=== PATIENT | male | born 1970 | race Caucasian/White ===

== ENCOUNTER 2023-09-03 01:40 | Observation (INO) | payer BC, SELFPAY ==
[2023-09-03] MEDS ORDERED: ALBUTEROL 2.5 MG/3 ML NEB SOL ONE (02:48)
[2023-09-03] MEDS ORDERED: METHYLPREDNISOLONE 125 MG INJ ONE (02:49)
[2023-09-03] MEDS ORDERED: IPRATROPIUM BROM 0.5MG/2.5ML ONE (02:49)
[2023-09-03] MEDS ORDERED: guaiFENesin 100 MG/5 ML UCUP ONE (02:49)
[2023-09-03] MEDS ORDERED: THIAMINE 200 MG/2 ML INJ ONE (02:49)
[2023-09-03] MEDS ORDERED: MULTIVITAMINS 10 ML VIAL (INJ) IV ONE (02:50)
[2023-09-03] MEDS ORDERED: NA CHLORIDE 0.9% 1,000 ML ONE (02:50)
[2023-09-03] MEDS ORDERED: FOLIC ACID 5 MG/ML VIAL ONE (02:51)
[2023-09-03 02:55] LABS: Absolute Basophils 0.1 K/uL (0-0.5); Absolute Eosinophils 0.1 K/uL (0-0.5); Absolute Monocytes 0.6 K/uL (0.1-1.3); Absolute Neutrophil 7.2 K/uL (1.8-8.0); Basophils % 0.7 % (0-1.3); Eosinophils % 1.6 % (0-4.4); Hematocrit 46.3 % (39.6-49.0); Hemoglobin 15.3 g/dL (13.6-17.9); Lymphocytes % 11.1 % (15.3-44.8); MCH 31.4 pg (27.0-35.0); MCHC 33.1 g/dL (32.0-36.0); MCV 94.7 fL (80-100); Neutrophils % 79.6 % (41.7-73.7); Platelets 239 thou/uL (152-406); RBC Red Blood Cell Count 4.89 M/uL (4.33-5.43); Red Cell Distribution Width 13.4 % (12.1-15.2)
[2023-09-03 03:06] LABS: PT Prothrombin Time 10.3 SECONDS (9.5-12.5); PTT, Activated Partial Thromb 31.2 SECONDS (24.3-36.9); Protime INR 0.93
[2023-09-03 03:20] LABS: ALT/SGPT 37 U/L (16-61); AST/SGOT 29 U/L (15-37); Albumin 3.5 g/dL (3.4-5.0); Albumin/Globulin Ratio 0.9 (1.1-1.8); Alkaline Phosphatase 76 U/L (45-117); Anion Gap 10.7 mEq/L (5.0-15.0); BUN Blood Urea Nitrogen 15 mg/dL (7-18); Bicarbonate 26 mEq/L (21-32); Bilirubin Total 0.2 mg/dL (0.2-1.0); Creatine Phosphokinase 480 U/L (39-308); Globulin 3.8 g/dL (2.3-3.5); Glomerular Filtration Rate 82 ml/min (=/>90); Glucose Level 93 mg/dL (74-106); Lipase 37 U/L (13-75); Magnesium 2.3 mg/dL (1.6-2.4); NT PRO-BNP 40 pg/mL (<125); Potassium 3.7 mEq/L (3.5-5.1); Protein, Total 7.3 g/dL (6.4-8.2); Sodium Level 140 mEq/L (136-145); Troponin High Sensitivity 5.9 pg/mL (<58.9)
[2023-09-03 03:25] LABS: Bilirubin Direct < 0.1 mg/dL (0-0.2); Bilirubin Indirect, Calculated ND mg/dL (0.2-0.8)
[2023-09-03] MEDS ORDERED: ACETAMINOPHEN 500 MG TAB PO PRN (06:32)
[2023-09-03] MEDS ORDERED: ONDANSETRON 4 MG/2 ML VIAL IV PRN (06:32)
[2023-09-03] MEDS ORDERED: IBUPROFEN 400 MG TAB PO PRN (06:32)
--- NOTE | 2023-09-03 06:32 | EDPHYS ---
Physician Documentation [facility] Name: Chet Murdock Age: 53 yrs Sex: Male : 1970 Arrival Date: 09/03/2023 Time: 01:40 Bed 15 Private MD: ED Physician Homero Holman HPI: 09/02 01:46 This 53 yrs old Male presents to ER via Unassigned with complaints of Dyspnea sp4 . 06:25 53-year-old male presents with wheezing and alcohol intoxication. sp4 Historical: - Allergies: 01:44 Codeine; ha1 01:44 PENICILLINS; ha1 - PMHx: 01:44 COPD; Hypertensive disorder; ha1 - Immunization history:: Adult Immunizations not up to date. - Infectious Disease History:: Denies. - Social history:: Smoking status: Patient reports the use of cigarette tobacco products, smokes one pack cigarettes per day. - Family history:: not pertinent. ROS: 06:25 Constitutional: Negative for fever, chills, and weight loss, positive for dyspnea, sp4 positive for wheezing, positive for alcohol intoxication 06:25 All other systems are negative, Exam: 06:25 Constitutional: This is a well developed, well nourished patient who is awake, alert, sp4 and in no acute distress. Head/Face: Normocephalic, atraumatic. Eyes: Pupils equal round and reactive to light, extra-ocular motions intact. Lids and lashes normal. Conjunctiva and sclera are not injected. Cornea within normal limits. Periorbital areas with no swelling, redness, or edema. ENT: Nares patent. No nasal discharge, no septal abnormalities noted. Tympanic membranes are normal and external auditory canals are clear. Oropharynx with no redness, swelling, or masses, exudates, or evidence of obstruction, uvula midline. Mucous membranes moist. Neck: Trachea midline, no thyromegaly or masses palpated, and no cervical lymphadenopathy. Supple, full range of motion without nuchal rigidity, or vertebral point tenderness. Chest/axilla: Normal chest wall appearance and motion. Nontender with no deformity. No lesions are appreciated. Cardiovascular: Regular rate and rhythm with a normal S1 and S2. No gallops, murmurs, or rubs. Normal PMI, no JVD. No pulse deficits. Respiratory: Lungs have equal breath sounds bilaterally, clear to auscultation and percussion. No rales, rhonchi or wheezes noted. No increased work of breathing, no retractions or nasal flaring. Abdomen/GI: Soft, with normal bowel sounds. No distension or tympany. No guarding or rebound. No evidence of tenderness throughout. Back: No spinal tenderness. No costovertebral tenderness. Skin: Warm, dry with normal turgor. Normal color with no rashes, no lesions, and no evidence of cellulitis. MS/ Extremity: Pulses equal, no cyanosis. Neurovascular intact. Full, normal range of motion. Neuro: Awake and alert, GCS 15, oriented to person, place, time, and situation. Cranial nerves II-XII grossly intact. Motor strength 5/5 in all extremities. Sensory grossly intact. Psych: Awake, alert, with orientation to person, place and time. Behavior, mood, and affect are within normal limits 06:25 ECG was reviewed by the Attending Physician. EKG at 0 216 sp4 Vital Signs: 01:44 BP 136 / 91; Pulse 82; Resp 19 S; Temp 98.2; Pulse Ox 100% on 4 lpm NC; Weight 90.72 kg;ha1 02:10 BP 142 / 102; Pulse 82; Resp 20 S; Pulse Ox 100% on 3 lpm NC; ha1 03:00 BP 125 / 81; Pulse 88; Resp 20 S; Pulse Ox 100% on Nebulizer Mask; ha1 04:01 BP 131 / 79; Pulse 89; Resp 20 S; Pulse Ox 97% on R/A; ha1 05:02 BP 139 / 81; Pulse 98; Resp 18 S; Pulse Ox 94% on R/A; ha1 06:00 BP 123 / 65; Pulse 92; Resp 17; Pulse Ox 91% ; vc1 [place] Coma Score: 06:25 Eye Response: spontaneous(4). Motor Response: obeys commands(6). Verbal Response: sp4 oriented(5). Total: 15. MDM: 01:56 Patient medically screened. sp4 06:29 Differential Diagnosis altered mental status, sepsis, flu. Data reviewed: vital signs, sp4 nurses notes, EMS record, lab test result(s), EKG, radiologic studies, plain films. ED course: EXAM: XR Chest, 1 View CLINICAL HISTORY: The patient is 53 years old and is Male; CHEST PAIN TECHNIQUE: Frontal view of the chest. COMPARISON: No relevant prior studies available. FINDINGS: Lungs: Unremarkable. No consolidation. Pleural space: Unremarkable. No pneumothorax. Heart: Unremarkable. Mediastinum: Unremarkable. Normal mediastinal contour. Bones/joints: No acute findings. IMPRESSION: No acute findings in the chest.. 09/02 01:54 Order name: Alcohol Level; Complete Time: 06:24 sp4 09/02 01:55 Order name: BMP; Complete Time: 06:24 sp4 09/02 01:55 Order name: Blood Culture Adult (2) 09/02 01:55 Order name: CBC with Diff; Complete Time: 06:24 4 09/02 01:55 Order name: CPK; Complete Time: 06:24 sp4 09/02 01:55 Order name: Hepatic Function; Complete Time: 06:24 sp4 09/02 01:55 Order name: Lipase; Complete Time: 06:24 sp4 09/02 01:55 Order name: Magnesium; Complete Time: 06:24 sp4 09/02 01:55 Order name: NT PRO-BNP; Complete Time: 06:24 sp4 09/02 01:55 Order name: PT-INR; Complete Time: 06:24 4 09/02 01:55 Order name: Ptt, Activated; Complete Time: 06:24 4 09/02 01:55 Order name: Troponin HS; Complete Time: 06:24 sp4 09/02 06:36 Order name: Urinalysis w/ reflexes EDMS 09/02 06:36 Order name: CBC with Automated Diff EDMS 09/02 06:36 Order name: CBC with Automated Diff EDMS 09/02 06:36 Order name: Comprehensive Metabolic Panel EDMS 09/02 06:36 Order name: Comprehensive Metabolic Panel EDMS 09/02 06:36 Order name: Magnesium EDMS 09/02 06:36 Order name: Magnesium EDMS 09/02 01:55 Order name: XRAY CXR (1 view) 09/02 01:55 Order name: EKG; Complete Time: 01:56 09/02 01:55 Order name: Cardiac monitoring; Complete Time: 02:23 4 09/02 01:55 Order name: EKG - Nurse/Tech; Complete Time: 02:23 4 09/02 01:55 Order name: IV Saline Lock; Complete Time: 03:52 sp4 09/02 01:55 Order name: Labs collected and sent; Complete Time: sp4 09/02 01:55 Order name: O2 Per Protocol; Complete Time: sp4 09/02 01:55 Order name: O2 Sat Monitoring; Complete Time: EC:25 Rate is 82 beats/min. Rhythm is regular, Normal Sinus Rhythm. QRS [place] is Normal. SC sp4 interval is normal. QRS interval is normal. QT interval is normal. No Q waves. T waves are Normal. No ST changes noted. Clinical impression: No evidence of ischemia. Interpreted by me. Reviewed by me. Administered Medications: 02:30 Drug: MethylPrednisoLONE IVP 125 mg IVP once Route: IVP; Site: right antecubital; ha1 04:00 Follow up: Response: No adverse reaction; Marked relief of symptoms ha1 02:30 Drug: Dextromethorphan-Guaifenesin PO Liquid 10 mg-100 mg/5 mL 10 ml PO once Route: PO; ha1 03:00 Follow up: Response: No adverse reaction; Marked relief of symptoms ha1 02:30 Drug: Ondansetron IVP 4 mg IVP once; over 2 minutes Route: IVP; Site: right antecubital;ha1 03:00 Follow up: Response: No adverse reaction; Marked relief of symptoms ha1 02:31 Drug: Albuterol Inhalation 2.5 mg Inhalation every 20 minutes x3 Route: Inhalation; ha1 02:31 Drug: Ipratropium Inhalation Aerosol 0.5 mg Inhalation once; Every 20 min for a total ha1 of 3 treatments x3 Route: Inhalation; 02:40 Drug: Banana Bag - (Multivitamin IV 1 amp, NS 0.9% IV 1000 ml, Thiamine IV 100 mg, ha1 foLIC Acid IVPB 1 mg) IV at calculated rate once Route: IV; Rate: calculated rate; Site: right antecubital; 02:45 Drug: Albuterol Inhalation 2.5 mg Inhalation every 20 minutes x3 Route: Inhalation; ha1 02:45 Drug: Ipratropium Inhalation Aerosol 0.5 mg Inhalation once; Every 20 min for a total ha1 of 3 treatments x3 Route: Inhalation; 03:06 Drug: Albuterol Inhalation 2.5 mg Inhalation every 20 minutes x3 Route: Inhalation; ha1 04:00 Follow up: Response: No adverse reaction; Marked relief of symptoms ha1 03:06 Drug: Ipratropium Inhalation Aerosol 0.5 mg Inhalation once; Every 20 min for a total ha1 of 3 treatments x3 Route: Inhalation; 04:00 Follow up: Response: No adverse reaction; Marked relief of symptoms ha1 Disposition Summary: 09/03/23 06:31 Hospitalization Ordered Notes: Hospitalization Status: Inpatient Admission sp4 Provider: Ravi Bacon sp4 [facility] sp4 Condition: Stable sp4 Problem: new sp4 Symptoms: have improved sp4 Bed/Room Type: Standard sp4 Room Assignment: 421(09/03/23 06:42) eb Diagnosis - COPD/ Chronic obstructive pulmonary disease with (acute) exacerbation sp4 - Alcohol abuse with intoxication, uncomplicated sp4 Forms: - Medication Reconciliation Form sp4 - SBAR form sp4 - Leadership Thank You Letter sp4 Signatures: Dispatcher [employer] EDMaria Luisa Bonilla Heidy, RN RN ha1 Homero Holman MD MD sp4 Corrections: (The following items were deleted from the chart) 01:56 01:56 BASIC METABOLIC PANEL+C.LAB.BRZ ordered. EDMS EDMS 01:56 01:56 BLOOD CULTURE*+BA.LAB.BRZ ordered. EDMS EDMS 01:56 01:56 CBC+H.LAB.BRZ ordered. EDMS EDMS 01:56 01:56 CREATINE PHOSPHOKINASE+C.LAB.BRZ ordered. EDMS EDMS 01:56 01:56 HEPATIC FUNCTION+C.LAB.BRZ ordered. EDMS EDMS 01:56 01:56 LIPASE+C.LAB.BRZ ordered. EDMS EDMS 01:56 01:56 MAGNESIUM+C.LAB.BRZ ordered. EDMS EDMS 01:56 01:56 PROBNP+C.LAB.BRZ ordered. EDMS EDMS 01:56 01:56 PROTIME (+INR)+COAG.LAB.BRZ ordered. EDMS EDMS 01:56 01:56 PTT, ACTIVATED+COAG.LAB.BRZ ordered. EDMS EDMS 01:56 01:56 Troponin High Sensitivity+C.LAB.BRZ ordered. EDMS EDMS 06:42 06:31 sp4 eb
--- NOTE | 2023-09-03 06:32 | ER ---
Nurse's Notes [facility] Name: Chet Murdock Age: 53 yrs Sex: Male : 1970 Arrival Date: 09/03/2023 Time: 01:40 Bed 15 Private MD: Diagnosis: COPD/ Chronic obstructive pulmonary disease with (acute) exacerbation;Alcohol abuse with intoxication, uncomplicated Presentation: 09/02 01:44 Chief complaint: EMS states: 53 YEAR OLD MALE REPORTS SOB HISTORY OF COPD. BREATHING ha1 TREATMENT GIVEN. SYMPTOMS IMPROVED. :44 Coronavirus screen: Vaccine status: Patient reports being unvaccinated. Ebola Screen: ha1 No symptoms or risks identified at this time. Initial Sepsis Screen: Does the patient meet any 2 criteria? No. Patient's initial sepsis screen is negative. Does the patient have a suspected source of infection? No. Patient's initial sepsis screen is negative. Risk Assessment: Do you want to hurt yourself or someone else? Patient reports no desire to harm self or others. Onset of symptoms was September 03, 2023. :44 Method Of Arrival: EMS: [facility] ha1 :44 Acuity: KAZ 3 ha1 Triage Assessment: : General: Appears uncomfortable, Behavior is cooperative, anxious. Pain: Denies pain. ha1 Neuro: Level of Consciousness is awake, alert, obeys commands, Oriented to person, place, time, situation. Cardiovascular: Heart tones S1 S2 present Capillary refill < 3 seconds Patient's skin is warm and dry. Respiratory: Respiratory: Reports shortness of breath at rest Airway is patent Respiratory effort is even, Respiratory pattern is tachypnea. GI: No signs and/or symptoms were reported involving the gastrointestinal system. Abdomen is round non-distended. Derm: Skin is pink, warm \T\ dry. Historical: - Allergies: : Codeine; ha1 :44 PENICILLINS; ha1 - PMHx: :44 COPD; Hypertensive disorder; ha1 - Immunization history:: Adult Immunizations not up to date. - Infectious Disease History:: Denies. - Social history:: Smoking status: Patient reports the use of cigarette tobacco products, smokes one pack cigarettes per day. - Family history:: not pertinent. Screenin:03 [facility] ED Fall Risk Assessment (Adult) History of falling in the last 3 months, ha1 including since admission No falls in past 3 months (0 pts) Confusion or Disorientation No (0 pts) Intoxicated or Sedated No (0 pts) Impaired Gait No (0 pts) Mobility Assist Device Used Yes (1 pt) Altered Elimination No (0 pt) Score/Fall Risk Level 0 - 2 = Low Risk Oriented to surroundings, Maintained a safe environment, Educated pt \T\ family on fall prevention, incl call for assistance when getting out of bed, Hourly rounding (assess needs \T\ fall precautionary measures) done. Abuse screen: Denies threats or abuse. Denies injuries from another. Nutritional screening: No deficits noted. Tuberculosis screening: No symptoms or risk factors identified. Assessment: 01:44 Reassessment: SEE TRIAGE ASSESSMENT. ha1 03:00 Reassessment: Patient and/or family updated on plan of care and expected duration. Pain ha1 level reassessed. Patient is alert, oriented x 3, equal unlabored respirations, skin warm/dry/pink. Patient states feeling better. Patient states symptoms have improved. 04:00 Reassessment: Patient and/or family updated on plan of care and expected duration. Pain ha1 level reassessed. Patient is alert, oriented x 3, equal unlabored respirations, skin warm/dry/pink. Patient denies pain at this time. Patient states feeling better. Patient states symptoms have improved. 05:01 Reassessment: Patient and/or family updated on plan of care and expected duration. Pain ha1 level reassessed. Patient is alert, oriented x 3, equal unlabored respirations, skin warm/dry/pink. Patient denies pain at this time. Patient states feeling better. Patient states symptoms have improved. 06:07 Reassessment: No changes from previously documented assessment. Patient and/or family vc1 updated on plan of care and expected duration. Pain level reassessed. Patient is alert, oriented x 3, equal unlabored respirations, skin warm/dry/pink. Vital Signs: 01:44 BP 136 / 91; Pulse 82; Resp 19 S; Temp 98.2; Pulse Ox 100% on 4 lpm NC; Weight 90.72 kg;ha1 02:10 BP 142 / 102; Pulse 82; Resp 20 S; Pulse Ox 100% on 3 lpm NC; ha1 03:00 BP 125 / 81; Pulse 88; Resp 20 S; Pulse Ox 100% on Nebulizer Mask; ha1 04:01 BP 131 / 79; Pulse 89; Resp 20 S; Pulse Ox 97% on R/A; ha1 05:02 BP 139 / 81; Pulse 98; Resp 18 S; Pulse Ox 94% on R/A; ha1 06:00 BP 123 / 65; Pulse 92; Resp 17; Pulse Ox 91% ; vc1 [place] Coma Score: 06:25 Eye Response: spontaneous(4). Motor Response: obeys commands(6). Verbal Response: sp4 oriented(5). Total: 15. ED Course: 01:44 Patient arrived in ED. rv1 01:44 Patient has correct armband on for positive identification. Placed in gown. Bed in low ha1 position. Call light in reach. Side rails up X 1. 01:44 Arm band placed on right wrist. ha1 01:45 Homero Holman MD is Attending Physician. sp4 01:52 EKG done, by ED staff, reviewed by Homero Holman MD. ha1 01:58 Kimberlyn Rogers, RN is Primary Nurse. ha1 02:15 Missed attempt(s): 20 gauge in left antecubital area. ha1 02:30 Inserted saline lock: 20 gauge in right antecubital area, using aseptic technique. ha1 Blood collected. 02:30 First set of blood cultures drawn. ha1 02:45 Second set of blood cultures drawn by me. ha1 03:00 XRAY CXR (1 view) In Process Unspecified. EDMS 03:08 BMP Sent. ha1 03:08 Blood Culture Adult (2) Sent. ha1 03:08 CPK Sent. ha1 03:08 Hepatic Function Sent. ha1 03:08 Lipase Sent. ha1 03:08 Magnesium Sent. ha1 03:08 NT PRO-BNP Sent. ha1 03:08 Troponin HS Sent. ha1 03:56 Triage completed. ha1 06:30 Ravi Bacon MD is Hospitalizing Provider. sp4 Administered Medications: 02:30 Drug: MethylPrednisoLONE IVP 125 mg IVP once Route: IVP; Site: right antecubital; ha1 04:00 Follow up: Response: No adverse reaction; Marked relief of symptoms ha1 02:30 Drug: Dextromethorphan-Guaifenesin PO Liquid 10 mg-100 mg/5 mL 10 ml PO once Route: PO; ha1 03:00 Follow up: Response: No adverse reaction; Marked relief of symptoms ha1 02:30 Drug: Ondansetron IVP 4 mg IVP once; over 2 minutes Route: IVP; Site: right antecubital;ha1 03:00 Follow up: Response: No adverse reaction; Marked relief of symptoms ha1 02:31 Drug: Albuterol Inhalation 2.5 mg Inhalation every 20 minutes x3 Route: Inhalation; ha1 02:31 Drug: Ipratropium Inhalation Aerosol 0.5 mg Inhalation once; Every 20 min for a total ha1 of 3 treatments x3 Route: Inhalation; 02:40 Drug: Banana Bag - (Multivitamin IV 1 amp, NS 0.9% IV 1000 ml, Thiamine IV 100 mg, ha1 foLIC Acid IVPB 1 mg) IV at calculated rate once Route: IV; Rate: calculated rate; Site: right antecubital; 02:45 Drug: Albuterol Inhalation 2.5 mg Inhalation every 20 minutes x3 Route: Inhalation; ha1 02:45 Drug: Ipratropium Inhalation Aerosol 0.5 mg Inhalation once; Every 20 min for a total ha1 of 3 treatments x3 Route: Inhalation; 03:06 Drug: Albuterol Inhalation 2.5 mg Inhalation every 20 minutes x3 Route: Inhalation; ha1 04:00 Follow up: Response: No adverse reaction; Marked relief of symptoms ha1 03:06 Drug: Ipratropium Inhalation Aerosol 0.5 mg Inhalation once; Every 20 min for a total ha1 of 3 treatments x3 Route: Inhalation; 04:00 Follow up: Response: No adverse reaction; Marked relief of symptoms ha1 Medication: 04:05 VIS not applicable for this client. ha1 Outcome: 06:31 Decision to Hospitalize by Provider. sp4 07:40 Patient left the ED. ph Signatures: Dispatcher [employer] Ana María Perez RN RN ph [place], Vanessa, RN RN 1 Kimberlyn Rogers RN RN ha1 Sabine Reyna rv1 Homero Holman MD MD sp4
[2023-09-03] MEDS ORDERED: ALBUTEROL 2.5 MG/3 ML NEB SOL NEB PRN (06:34)
[2023-09-03] MEDS ORDERED: IPRATROPIUM BROM 0.5MG/2.5ML NEB PRN (06:35)
[2023-09-03] MEDS ORDERED: FLUMAZENIL 0.1 MG/ML (5 mL VIAL) IV PRN (06:36)
[2023-09-03] MEDS ORDERED: LORazepam 2 MG/ML VIAL IV PRN (06:38)
--- NOTE | 2023-09-03 06:39 | P.HP ---
Certification for Inpatient Patient admitted to: Observation <ArlethMarilin - Last Filed: 09/03/23 07:06> Patient History Date of Service: 09/03/23 Reason for admission: COPD exacerbation History of Present Illness: 53-year-old male with a past medical history hypertension, COPD, presents to the emergency room with shortness of breath. 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 He reports shortness of breath, nonproductive cough, inspiratory expiratory wheezing. Symptoms worse with exertion. He reports use of home inhalers not effective. He denies fever, chest pain, edema, he reports drinking alcohol while working. Plan to admit for COPD exacerbation, alcohol intoxication. - Past Medical/Surgical History -: Hypertension -: COPD - Social History Smoking Status: Current every day smoker Alcohol use: Yes CD- Drugs: No Caffeine use: Yes Place of Residence: Home <Marilin Reinoso - Last Filed: 09/03/23 07:06> Date of Service: 09/04/23 <Ravi Bacon - Last Filed: 09/04/23 01:40> Review of Systems per HPI <Marilin Reinoso - Last Filed: 09/03/23 07:06> Physical Examination - Physical Exam General: Alert, In no apparent distress, Oriented x3 HEENT: Atraumatic, Normocephalic Neck: Supple, JVD not distended Respiratory: Expiratory wheezes, Inspiratory wheezes Cardiovascular: No edema, Normal pulses Capillary refill: <2 Seconds Gastrointestinal: Normal bowel sounds, Soft and benign Musculoskeletal: No clubbing, No swelling Integumentary: No rashes, No breakdown Neurological: Normal speech, Normal strength at 5/5 x4 extr - Studies Laboratory Data (last 24 hrs) 09/03/23 09/03/23 09/03/23 02:40 02:40 02:40 WBC 9.00 Hgb 15.3 Hct 46.3 Plt Count 239 PT 10.3 INR 0.93 APTT 31.2 Sodium 140 Potassium 3.7 BUN 15 Creatinine 1.07 Glucose 93 Magnesium 2.3 Total Bilirubin 0.2 AST 29 ALT 37 Alkaline Phosphatase 76 Lipase 37 <Marilin Reinoso - Last Filed: 09/03/23 07:06> - Studies Laboratory Data (last 24 hrs) 09/03/23 09/03/23 09/03/23 02:40 02:40 02:40 WBC 9.00 Hgb 15.3 Hct 46.3 Plt Count 239 PT 10.3 INR 0.93 APTT 31.2 Sodium 140 Potassium 3.7 BUN 15 Creatinine 1.07 Glucose 93 Magnesium 2.3 Total Bilirubin 0.2 AST 29 ALT 37 Alkaline Phosphatase 76 Lipase 37 <BaconBreannjuliet Goldie - Last Filed: 09/04/23 01:40> Assessment and Plan - Plan Assessment plan COPD exacerbation Acute hypoxic respiratory failure secondary to COPD exacerbation O2 2 L keep sats greater than 92% As needed nebs, azithromycin, Solu-Medrol, BP 136 / 91; Pulse 82; Resp 19 S; Temp 98.2; Pulse Ox 100% on 4 lpm NC; Weight 90.72 kg EKG beats/min. Rhythm is regular, Normal Sinus Rhythm. QRS [place] is Normal. interval is normal. QRS interval is normal. QT interval is normal. No Q waves. T waves are Normal. No ST changes noted. Clinical impression: No evidence of ischemia Troponin normal 5.9 Chest x-ray e. FINDINGS: Lungs: Unremarkable. No consolidation. Pleural space: Unremarkable. No pneumothorax. Heart: Unremarkable. Mediastinum: Unremarkable. Normal mediastinal contour. Bones/joints: No acute findings. IMPRESSION: No acute findings in the chest.. Alcohol intoxication Elevated CK Alcohol level, IV fluids, CIWA protocol, as needed Ativan for seizure, anxiety Lipase normal at 37, liver enzymes normal Alcohol 147 GCS Eye Response: spontaneous(4). Motor Response: obeys commands(6). Verbal Response: oriented(5). Total: 15 Tobacco use Educated on tobacco cessation Essential hypertension Obesity As needed antihypertensives Full code DVT Lovenox Diet cardiac Disposition Home independent prior Discharge Plan: Home - Advance Directives Does patient have a Living Will: No Does patient have a Durable POA for Healthcare: No - Code Status/Comfort Care Code Status: Full Code Critical Care: No Time Spent Managing Pts Care (In Minutes): 55 <Marilin Reinoso - Last Filed: 09/03/23 07:06> Date of Service: 09/03/23 Patient was seen and examined. Events of the last 24 hours have been noted. Spoke with with ELAN regarding patient's clinical picture after evaluating and examining the patient independently. I performed a substantial part of the MDM during this patient's care today. I personally made or approved the documented management plan and acknowledge its risk of complications. I agree with the findings and documentation provided in the ELAN's notes. Patient clinically doing well. Respiratory status is improving. Patient admitted for nebs, steroids, and antibiotics. <Ravi Bacon - Last Filed: 09/04/23 01:40>
[2023-09-03] MEDS ORDERED: METOPROLOL TARTRATE 5 MG/5 ML INJ IV PRN (06:40)
[2023-09-03 08:50] VITALS: TEMP 97.7
[2023-09-03] MEDS: MULTIVITAMIN TAB PO SCH (09:00)
[2023-09-03] MEDS: THIAMINE HCL 100 MG TABLET PO SCH (09:00)
[2023-09-03] MEDS: FOLIC ACID 1 MG TABLET PO SCH (09:00)
[2023-09-03] MEDS: AZITHROMYCIN IV 500 MG in NA CHLORIDE 0.9% 250 ML IVPB SCH (09:00)
[2023-09-03] MEDS: ENOXAPARIN 40 MG/0.4 ML SQ SCH (09:00)
[2023-09-03 10:04] VITALS: O2SAT 95
[2023-09-03] MEDS: NA CHLORIDE 0.9% 1,000 ML IV SCH (11:16)
[2023-09-03 11:58] VITALS: BMI 29.7
[2023-09-03] MEDS: chlordiazePOXIDE HCl 25 MG CAP PO SCH (12:00)
[2023-09-03 12:35] VITALS: BP 165/84
--- NOTE | 2023-09-03 12:56 | P.DS ---
Admission Date: 09/03/23 Discharge Date: 09/03/23 Reason for Admission: COPD exacerbation Brief History of Present Illness: 53-year-old male with a past medical history hypertension, COPD, presents to the emergency room with shortness of breath. He reports currently working [employer] reports possible exposure to mold. He reports shortness of breath, nonproductive cough, inspiratory expiratory wheezing. Symptoms worse with exertion. He reports use of home inhalers not effective. He denies fever, chest pain, edema, he reports drinking alcohol while working. Plan to admit for COPD exacerbation, alcohol intoxication. - Physical Exam General: Alert, In no apparent distress, Oriented x3 HEENT: Atraumatic, Normocephalic Neck: Supple, JVD not distended Respiratory: Expiratory wheezes, Inspiratory wheezes Cardiovascular: No edema, Normal pulses Capillary refill: <2 Seconds Gastrointestinal: Normal bowel sounds, Soft and benign Musculoskeletal: No clubbing, No swelling Integumentary: No rashes, No breakdown Neurological: Normal speech, Normal strength at 5/5 x4 extr Hospital Course: 83-year-old male came in with shortness of breath, with noted alcohol intoxication, patient was treated with IV fluids, nebulizers, steroids, oxygen. Patient is feeling better requesting to go home. Reports he has inhalers at home. Follow-up with primary care after discharge instructed on alcohol cessation, tobacco cessation Assessment plan COPD exacerbation instructed on inhalers, Medrol Dosepak Alcohol intoxication instructed on alcohol cessation, not to drive while using alcohol elevated CK -dehydration instructed on staying hydrated Tobacco use instructed on tobacco cessation Staying hydrated, elevated CK, dehydration Prescription of Solu-Medrol Dosepak, Albuterol inhaler Educated on tobacco, alcohol cessation 1305 Patient refused to stay inpatient insisted on leaving and being discharged now. Continue home medicines as previously prescribed GOAL: Clear understanding of disease process INSTRUCTIONS: Physician Discharge Instructions: -DC IV and DC home -Follow-up with PCP in 1 to 2 weeks -Please call Dr. Bacon at [phone] if any questions regarding hospital stay -Please call nursing station at [phone] if any nursing or medication questions -Return to the emergency room if symptoms worsen Diet: ADA, low sodium Activity: Fall precautions <Marilin Reinoso - Last Filed: 09/03/23 13:38> Admission Date: 09/03/23 Discharge Date: 09/03/23 Hospital Course: Patient is a 53-year-old gentleman admitted for acute COPD exacerbation. Patient is clinically doing much better. Patient's respiratory status has improved. At this time patient is clinically doing well and patient is stable for discharge. Patient is stating that he is feeling much better and he does want stay in the hospital any further. Will go ahead and proceed with discharge home. <Ravi Bacon - Last Filed: 09/04/23 01:41> Disposition: ROUTINE DISCHARGE Discharge Condition: GOOD Vital Signs/Physical Exam: Temp Pulse Resp BP Pulse Ox 97.7 F 94 H 14 165/84 H 95 09/03/23 12:00 09/03/23 12:00 09/03/23 12:00 09/03/23 12:00 09/03/23 12:00 Laboratory Data at Discharge: WBC 9.00 thou/uL (4.3-10.9) 09/03/23 02:40 Hgb 15.3 g/dL (13.6-17.9) 09/03/23 02:40 Hct 46.3 % (39.6-49.0) 09/03/23 02:40 Plt Count 239 thou/uL (152-406) 09/03/23 02:40 PT 10.3 SECONDS (9.5-12.5) 09/03/23 02:40 INR 0.93 09/03/23 02:40 APTT 31.2 SECONDS (24.3-36.9) 09/03/23 02:40 Sodium 140 mEq/L (136-145) 09/03/23 02:40 Potassium 3.7 mEq/L (3.5-5.1) 09/03/23 02:40 BUN 15 mg/dL (7-18) 09/03/23 02:40 Creatinine 1.07 mg/dL (0.70-1.30) 09/03/23 02:40 Glucose 93 mg/dL (74-106) 09/03/23 02:40 Magnesium 2.3 mg/dL (1.6-2.4) 09/03/23 02:40 Total Bilirubin 0.2 mg/dL (0.2-1.0) 09/03/23 02:40 AST 29 U/L (15-37) 09/03/23 02:40 ALT 37 U/L (16-61) 09/03/23 02:40 Alkaline Phosphatase 76 U/L (45-117) 09/03/23 02:40 Lipase 37 U/L (13-75) 09/03/23 02:40 <Marilin Reinoso - Last Filed: 09/03/23 13:38> Vital Signs/Physical Exam: Temp Pulse Resp BP Pulse Ox 97.7 F 94 H 14 165/84 H 95 09/03/23 12:00 09/03/23 12:00 09/03/23 12:00 09/03/23 12:00 09/03/23 12:00 Laboratory Data at Discharge: WBC 9.00 thou/uL (4.3-10.9) 09/03/23 02:40 Hgb 15.3 g/dL (13.6-17.9) 09/03/23 02:40 Hct 46.3 % (39.6-49.0) 09/03/23 02:40 Plt Count 239 thou/uL (152-406) 09/03/23 02:40 PT 10.3 SECONDS (9.5-12.5) 09/03/23 02:40 INR 0.93 09/03/23 02:40 APTT 31.2 SECONDS (24.3-36.9) 09/03/23 02:40 Sodium 140 mEq/L (136-145) 09/03/23 02:40 Potassium 3.7 mEq/L (3.5-5.1) 09/03/23 02:40 BUN 15 mg/dL (7-18) 09/03/23 02:40 Creatinine 1.07 mg/dL (0.70-1.30) 09/03/23 02:40 Glucose 93 mg/dL (74-106) 09/03/23 02:40 Magnesium 2.3 mg/dL (1.6-2.4) 09/03/23 02:40 Total Bilirubin 0.2 mg/dL (0.2-1.0) 09/03/23 02:40 AST 29 U/L (15-37) 09/03/23 02:40 ALT 37 U/L (16-61) 09/03/23 02:40 Alkaline Phosphatase 76 U/L (45-117) 09/03/23 02:40 Lipase 37 U/L (13-75) 09/03/23 02:40 <Ravi Bacon - Last Filed: 09/04/23 01:41> Diet: AHA Activity: Fall precautions Time spent managing pt's care (in minutes): 55 <Marilin Reinoso - Last Filed: 09/03/23 13:38> <Ravi Bacon - Last Filed: 09/04/23 01:41> Home Medications: Albuterol Inhaler [Ventolin Inhaler*] 2 puff IH Q6H PRN 30 Days #1 inh 09/03/23 Methylprednisolone [Medrol dosepack] 4 mg PO DIRECTED #1 elvira 09/03/23 New Medications: Methylprednisolone [Medrol dosepack] 4 mg PO DIRECTED #1 elvira Albuterol Inhaler [Ventolin Inhaler*] 2 puff IH Q6H PRN 30 Days #1 inh PRN Reason: Shortness Of Breath Physician Discharge Instructions: Assessment plan COPD exacerbation Alcohol intoxication elevated CK -dehydration instructed on staying hydrated Tobacco use instructed on tobacco cessation 1305 Patient refused to stay inpatient insisted on leaving and being discharged now. instructed on avoiding alcohol, staying hydrated, pt verbalized understanding, In change in kidney function, less or dark urine, need to return to ER. Prescription of Solu-Medrol Dosepak Albuterol inhaler Educated on tobacco, alcohol cessation Continue home medicines as previously prescribed GOAL: Clear understanding of disease process INSTRUCTIONS: Physician Discharge Instructions: -DC IV and DC home -Follow-up with PCP in 1 to 2 weeks -Please call Dr. Bacon at [phone] if any questions regarding hospital stay -Please call nursing station at [phone] if any nursing or medication questions -Return to the emergency room if symptoms worsen Diet: ADA, low sodium Activity: Fall precautions Followup: OOT,OOT [Primary Care Provider] - 1-2 Weeks (call to schedule an appointment)
[2023-09-03] MEDS: METHYLPREDNISOLONE 125 MG INJ IV SCH (12:57)
[2023-09-03] MEDS ORDERED: ALBUTEROL INHALER 200 PUFF/6.7 GM IH PRN (13:27)
[2023-09-03] MEDS ORDERED: PNEUMOCOCCAL VACCINE 0.5 ML IMVAC ONE (15:00)
--- NOTE | 2023-09-03 21:23 | RAD REPORT ---
EXAM DESCRIPTION: RAD - Chest Single View - 09/03/2023 2:58 am CLINICAL HISTORY: The patient is 53 years old and is Male; CHEST PAIN TECHNIQUE: Frontal view of the chest. COMPARISON: No relevant prior studies available. FINDINGS: Lungs: Unremarkable. No consolidation. Pleural space: Unremarkable. No pneumothorax. Heart: Unremarkable. Mediastinum: Unremarkable. Normal mediastinal contour. Bones/joints: No acute findings. IMPRESSION: No acute findings in the chest. Electronically signed by: Ronn Higuera MD 09/03/2023 04:03 AM CDT Due to temporary technical issues with the PACS/Fluency reporting system, reports are being signed by the in house radiologists without review as a courtesy to insure prompt reporting. The interpreting radiologist is fully responsible for the content of the report.
== END 2023-09-03 15:43 | disposition home or self-care (01) ==
LOC: ER 01:40 → ERHOLD 06:31 → 4TH 07:08
PROVIDERS: ADMIT Hospitalist; ATTEND Hospitalist
DX: J44.1 Chronic obstructive pulmonary disease with (acute) exacerbation (principal); J96.01 Acute respiratory failure with hypoxia; I10 Essential (primary) hypertension; R05.9 Cough, unspecified; R74.8 Abnormal levels of other serum enzymes; F17.210 Nicotine dependence, cigarettes, uncomplicated; F10.129 Alcohol abuse with intoxication, unspecified; E66.9 Obesity, unspecified; Y90.6 Blood alcohol level of 120-199 mg/100 ml; Z68.29 Body mass index [BMI] 29.0-29.9, adult; Z71.6 Tobacco abuse counseling; Z71.41 Alcohol abuse counseling and surveillance of alcoholic
CPT/HCPCS: 93005; 87040 ×2; 85025; 80048; 36415; 83735; 82550; 85610; 80076; 85730; 84484; 83690; 83880; 71045; 96375; 96374; 99285; 82077; J3411; J7613; J7644; J2919 ×2; J7030 ×2; G0378 ×2